=== PATIENT | male | born 1960 | race African-American/Black ===

== ENCOUNTER 2021-07-22 14:15 | Emergency (ER) | payer MEDICARE, OTHER ==
[~2021-07-22] VITALS: Ht 172.7 cm; Wt 65.8 kg
[2021-07-22 15:43] LABS: HEMATOCRIT 42.8 % (36.7-47.1); MEAN CORPUSCULAR HEMOGLOBIN 27.3 uug (23.8-33.4); MEAN CORPUSCULAR VOLUME 83.6 fL (73.0-96.2); PLATELET COUNT (AUTO) 481 K/uL (152-348)
[2021-07-22 15:45] LABS: POTASSIUM 3.8 mmol/L (3.5-5.1)
[2021-07-22 15:51] LABS: BILIRUBIN,TOTAL 0.2 mg/dL (0.2-1.0)
[2021-07-22] MEDS ORDERED: CLINDAMYCIN PHOSPHATE IV 600 MG in IV DEXTROSE 5% 100 ML IV ONE (16:00)
--- NOTE | 2021-07-22 16:42 | NUR ---
Jackie lennon in [facility] - 07/22/21 at 1646 by [id number] ANA LAURA PEDERSON ATTENDING UROLOGIST CALLED BACK SPOKE WITH DR SHAH WILL ACCEPT PATIENT FOR ADMISSION.
--- NOTE | 2021-07-22 16:42 | NUR ---
ANA LAURA PEDERSON BALANCE SCREWHEAD POLISHER CALLED BACK SPOKE WITH DR PABLO TOSCANO DC BACK TO FACILITY.
[2021-07-22] MEDS ORDERED: CLIN300C12 PO (16:52)
--- NOTE | 2021-07-22 16:55 | NUR ---
[facility] WAS CALLED ROOFING SUPERINTENDENT 1800.
--- NOTE | 2021-07-22 18:10 | NUR ---
REPORT GIVEN TO AMBULANCE EMT.
[2021-07-22 18:20] VITALS: BP 120/89
== END 2021-07-22 18:30 ==
LOC: ER 14:15
DX: N61.0 Mastitis without abscess (principal); N63.0 Unspecified lump in unspecified breast; E78.5 Hyperlipidemia, unspecified; F32.9 Major depressive disorder, single episode, unspecified; I69.320 Aphasia following cerebral infarction; F01.50 Vascular dementia, unspecified severity, without behavioral disturbance, psychotic disturbance, mood disturbance, and anxiety; R13.10 Dysphagia, unspecified; Z93.1 Gastrostomy status
CPT/HCPCS: 36415; 76642; 80053; 85025; 86140; 96365; 99284; J3490; J7060; A4663

== ENCOUNTER 2021-08-22 00:58 | Emergency (ER) | payer MEDICARE, OTHER ==
[~2021-08-22] VITALS: Ht 170.2 cm; Wt 58.1 kg
[~2021-08-22 00:58] MED LIST: CLIN300C12 PO
--- NOTE | 2021-08-22 01:15 | NUR ---
Dr. Mercedes at bedside for MSE.
[2021-08-22] MEDS ORDERED: CLOP75TA15 GT (01:24)
[2021-08-22] MEDS ORDERED: METO100T14 GT (01:24)
[2021-08-22] MEDS ORDERED: AMLO5TAB4 GT (01:24)
[2021-08-22] MEDS ORDERED: CLON0.1T GT (01:24)
[2021-08-22] MEDS ORDERED: POLY17PO4 GT (01:24)
[2021-08-22] MEDS ORDERED: ACET-2154 GT (01:24)
[2021-08-22] MEDS ORDERED: SENN-261 GT (01:24)
[2021-08-22] MEDS ORDERED: FERR325T24 GT (01:24)
[2021-08-22] MEDS ORDERED: BENA20TA9 GT (01:24)
[2021-08-22] MEDS ORDERED: ATOR20TA GT (01:24)
--- NOTE | 2021-08-22 01:30 | NUR ---
Pt out of ER for CT.
--- NOTE | 2021-08-22 01:45 | NUR ---
Pt back to ER from CT.
--- NOTE | 2021-08-22 02:26 | NUR ---
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
--- NOTE | 2021-08-22 02:29 | NUR ---
Called [facility] and spoke with Jason regarding patient's ETA.
--- NOTE | 2021-08-22 02:45 | NUR ---
[facility] arrived and picked up patient via gurney in an ambulance accompanied by 3 portfolio director. No signs of acute distress noted. VSS. Transported back to [facility], RN on duty made aware of ETA.
[2021-08-22 03:20] VITALS: BP 165/107
== END 2021-08-22 02:50 ==
LOC: ER 01:02
DX: Z04.3 Encounter for examination and observation following other accident (principal); I69.920 Aphasia following unspecified cerebrovascular disease; Z93.1 Gastrostomy status; R13.10 Dysphagia, unspecified; F01.50 Vascular dementia, unspecified severity, without behavioral disturbance, psychotic disturbance, mood disturbance, and anxiety; F32.9 Major depressive disorder, single episode, unspecified; I69.922 Dysarthria following unspecified cerebrovascular disease; I25.10 Atherosclerotic heart disease of native coronary artery without angina pectoris; Z79.02 Long term (current) use of antithrombotics/antiplatelets; Z79.899 Other long term (current) drug therapy; Z91.81 History of falling
CPT/HCPCS: 70450; A4663